=== PATIENT | male | born 1970 | race Two or more races ===

== ENCOUNTER 2018-08-18 13:45 | Outpatient (CLI) | payer OTHER | END 2018-08-18 13:58 | disposition home or self-care (01) | LOC: RAD 501 13:45 | DX: R05 Cough (principal); Z00.00 Encounter for general adult medical examination without abnormal findings ==

== ENCOUNTER 2021-09-07 14:38 | Emergency (ER) | payer OTHER ==
[~2021-09-07] VITALS: Ht 190.5 cm; Wt 131.5 kg
== END 2021-09-07 20:22 | disposition home or self-care (01) ==
LOC: ER 14:38
DX: U07.1 COVID-19 (principal); I10 Essential (primary) hypertension